=== PATIENT | male | born 2000 | race Caucasian/White ===

== ENCOUNTER 2021-09-04 20:27 | Emergency (ER) | payer OTHER ==
[2021-09-04 20:34] VITALS: BP 124/87
--- NOTE | 2021-09-04 20:46 | ED Physician Documentation ---
History of Present Illness - Stated complaint Stated Complaint: RT EAR PX - Chief complaint Chief Complaint: Heent - Additonal information Additional information: 21-year-old male presents to the emergency department for evaluation of suspec [place] foreign body in the right ear. He began feeling a sensation of something crawling in his ear and hearing crunching about 3 hours ago. He attempted to rinse the ear with water as Well is used tea tree oil. He no longer has the sensation of the foreign body in the ear but is concerned that it may have . No ear pain Review of Systems Constitutional: reports: Reviewed and negative Ears: reports: Foreign body Nose: reports: Reviewed and negative Throat: reports: Reviewed and negative Cardiac: reports: Reviewed and negative PD PAST MEDICAL HISTORY - Allergies Allergies/Adverse Reactions: Allergies Allergy/AdvReac Type Severity Reaction Status Date / Time No Known Drug Allergies Allergy Verified 09/04/21 20:31 PD ED PE NORMAL - General General: Alert and oriented X 3, No acute distress, Well developed/nourished - HEENT HEENT: Ears normal, Other (Right ear canal without foreign body, debris or arthropod. TM intact without effusion. No EAC erythema or drainage.) Results - Vitals Vitals: Vital Signs - 24 hr 09/04/21 20:32 Temperature 36.5 C Heart Rate 87 Respiratory 16 Rate Blood Pressure 124/87 H O2 Saturation 100 Oxygen O2 Source Room air PD MEDICAL DECISION MAKING - ED course Complexity details: d/w patient ED course: 21-year-old male comes to the emergency department concerned that he may have a insect in his ear. He had a crunching sound in the ear as well as a crawling sensation. He irrigated the ear and used tea tree oil. This symptom has gone away but he never saw anything come out with his irrigations. On exam the ear canal and TM are unremarkable. I suspect that what ever he had in his ear he was able to irrigate out. Emergent return precautions were discussed for concerns of infection Departure - Departure Disposition: 01 Home, Self Care Clinical Impression: Right ear pain Condition: Stable Record reviewed to determine appropriate education?: Yes Comments: Hal the examination of your right ear is normal at this time. There are no foreign objects or bugs. What ever he you had crawling in it you were able to remove by rinsing it. Please return to the ER if you develop ear pain have ear swelling fevers or any other emergent concerns
== END 2021-09-04 21:26 | disposition home or self-care (01) ==
LOC: ED 20:27
DX: H92.01 Otalgia, right ear (principal)
CPT/HCPCS: 99281

== ENCOUNTER 2023-03-07 15:30 | Outpatient (CLI) | payer OTHER ==
--- NOTE | 2023-03-07 19:43 | XRAY Report ---
PROCEDURE: Lumbar Spine 2 View INDICATIONS: LUMBAR AND COCCYGEAL PAIN TECHNIQUE: 3 view(s) of the lumbar spine were acquired. COMPARISON: None. FINDINGS: Bones: Vertebral body height and alignment is maintained. No suspicious bony lesions. Soft tissues: Overlying bowel gas pattern is normal. No suspicious soft tissue calcifications. Mod erate to large debris in the left colon IMPRESSION: Unremarkable lumbar spine. Moderate to large amount fecal debris in the left colon Reviewed by: Raymond Mahoney MD on 03/07/2023 6:42 PM [place] Approved by: Raymond Mahoney MD on 03/07/2023 6:42 PM [place] Station ID: [id number]
--- NOTE | 2023-03-07 19:44 | XRAY Report ---
PROCEDURE: Sacrum/Coccyx INDICATIONS: LUMBAR AND COCCYGEAL PAIN TECHNIQUE: 2 views of the sacrum and coccyx acquired. COMPARISON: None. FINDINGS: Bones: No fractures or dislocations. No suspicious bony lesions. Soft tissues: Visualized bowel gas pattern is normal. No suspicious soft tissue densities. IMPRESSION: Unremarkable sacrococcygeal radiographs. Moderate to large amount fecal debris in the left colon Reviewed by: Raymond Mahoney MD on 03/07/2023 6:43 PM AKST Approved by: Raymond Mahoney MD on 03/07/2023 6:43 PM AKST Station ID: [id number]
== END 2023-03-07 15:45 | disposition home or self-care (01) ==
LOC: DI.N 15:30
PROVIDERS: ATTEND Family Medicine
DX: M54.50 Low back pain, unspecified (principal); M53.3 Sacrococcygeal disorders, not elsewhere classified